=== PATIENT | male | born 1960 | race Caucasian/White ===

== ENCOUNTER 2017-07-29 09:06 | Emergency (ER) | payer BC ==
[2017-07-29] MEDS ORDERED: Tetan/Diph/Pertus SYR(Tdap)* 0.5 ML SYR(BOOSTRIX) use SYR IM ONE (09:54)
--- NOTE | 2017-07-29 10:02 | ED ---
Laceration/Wound HPI - HPI Summary HPI Summary: Patient is a 57-year-old male presenting to the ED with a fishhook just anterior to the right ear. Caitlyn is approximately 0.4 cm in depth based on palpation. Denies any pain. No bleeding on arrival. Patient denies any numbness or tingling to the face. He is otherwise healthy. Patient is a smoker. Denies any allergies. Tetanus is under 10 years but over 5 years old. Exact tetanus date unknown. - History of Current Complaint Stated Complaint: FISHING LURE IN FACE Time Seen by Provider: 07/29/17 09:23 Hx Obtained From: Patient Mechanism of Injury: Sharp/Blunt Trauma Onset/Duration: Sudden Onset Aggravating: Movement Timing: Constant Onset Severity: Mild Current Severity: None Pain Intensity: 0 Pain Scale Used: 0-10 Numeric Associated Signs & Symptoms: Negative - Allergy/Home Medications Allergies/Adverse Reactions: Allergies Allergy/AdvReac Type Severity Reaction Status Date / Time No Known Allergies Allergy Verified 07/29/17 09:17 Home Medications: Home Medications NK [No Home Medications Reported] 07/29/17 [History Confirmed 07/29/17] PMH/Surg Hx/FS Hx/Imm Hx Previously Healthy: Yes - Immunization History Hx Pertussis Vaccination: No Immunizations Up to Date: Unable to Obtain/Confirm Infectious Disease History: No Infectious Disease History: Denies: Traveled Outside the [place] in Last 30 Days - Social History Occupation: Unemployed Lives: With Family Alcohol Use: Occasionally Hx Substance Use: No Substance Use Type: Reports: None Smoking Status (MU): Current Every Day Smoker Review of Systems Constitutional: Negative Negative: Fever, Chills, Fatigue Negative: Palpitations, Chest Pain Negative: Shortness Of Breath, Cough Genitourinary: Negative Positive: no symptoms reported, see HPI Negative: Arthralgia, Myalgia Positive: Other - fishing lure to the face Neurological: Negative All Other Systems Reviewed And Are Negative: Yes Physical Exam Triage Information Reviewed: Yes Vital Signs On Initial Exam: Initial Vitals Temp Pulse Resp BP Pulse Ox 97.8 F 71 16 144/86 97 07/29/17 09:17 07/29/17 09:17 07/29/17 09:17 07/29/17 09:17 07/29/17 09:17 Vital Signs Reviewed: Yes Appearance: Positive: Well-Appearing, Well-Nourished Skin: Positive: Warm, Skin Color Reflects Adequate Perfusion, Other - fishing lure to the R side of the face just anterior to the R ear Head/Face: Positive: Normal Head/Face Inspection Eyes: Positive: NIKO Neck: Positive: Supple, No Lymphadenopathy Respiratory/Lung Sounds: Positive: Clear to Auscultation, Breath Sounds Present Cardiovascular: Positive: RRR, Pulses are Symmetrical in both Upper and Lower Extremities Musculoskeletal: Positive: Normal, Strength/ROM Intact Neurological: Positive: Speech Normal Psychiatric: Positive: Normal, Affect/Mood Appropriate AVPU Assessment: Alert Procedures - Laceration/Wound Repair 1 Location: face Description: Linear Irrigated w/ Saline (ccs): 20 Laceration/Wound Explored: clean Closure: Single Layer Suture Type: Prolene Number of Sutures: 1 Layer Closure?: No Sterile Dressing Applied?: No Diagnostics - Vital Signs Vital Signs Temp Pulse Resp BP Pulse Ox 07/29/17 09:17 97.8 F 71 16 144/86 97 - Laboratory Lab Statement: Any lab studies that have been ordered have been reviewed, and results considered in the medical decision making process. Laceration Repair Course/Dx - Course Course Of Treatment: Hair was cut around the area of the fishing lower. 1ml lidocaine without epi used as local anesthetic. 0.6 cm incision made skin just anterior to where the caitlyn is palpated. Dislodged the fishing lure. 1, 5-0 prolene placed. Patient tolerated well. He denies any numbness or tingling to the cheek. Tetanus updated on this date. - Clinical Impression Provider Diagnoses: Foreign body of face Discharge - Sign-Out/Discharge Documenting (check all that apply): Discharge/Admit/Transfer - Discharge Plan Condition: Stable Disposition: HOME Referrals: Reynaldo Lugo MD [Primary Care Provider] - Additional Instructions: Tetanus updated Please return for any worsening symptoms Suture removal in 5 days - Billing Disposition and Condition Condition: STABLE Disposition: HOME Images - Images Head: 1 - fishing lure
[2017-07-29 17:59] VITALS: BP 133/76
== END 2017-07-29 17:58 | disposition home or self-care (01) ==
LOC: ED 09:06
DX: S01.84XA Puncture wound with foreign body of other part of head, initial encounter (principal); W26.8XXA Contact with other sharp object(s), not elsewhere classified, initial encounter; W45.8XXA Other foreign body or object entering through skin, initial encounter; Y92.9 Unspecified place or not applicable; F17.200 Nicotine dependence, unspecified, uncomplicated; Z23 Encounter for immunization
CPT/HCPCS: 12011; 90471; 90715; 99282